=== PATIENT | male | born 1975 | race Caucasian/White ===

== ENCOUNTER 2017-07-02 12:30 | Emergency (ER) | payer OTHER ==
[~2017-07-02] VITALS: Ht 188 cm; Wt 70.3 kg
== END 2017-07-02 18:51 | disposition home or self-care (01) ==
LOC: ER 12:30
DX: M25.512 Pain in left shoulder (principal); M75.92 Shoulder lesion, unspecified, left shoulder

== ENCOUNTER → 2024-01-13 | Emergency (ER) | payer OTHER ==
[~2024-01-13] VITALS: Ht 188 cm; Wt 70.3 kg
[~2024-01-13] MED LIST: KETOROLAC TROMETHAMINE 60 MG VIAL IM ONE; KETOROLAC TROMETHAMINE 60 MG VIAL IM STA
== END | disposition home or self-care (01) ==
LOC: ER 09:57
DX: S43.401A Unspecified sprain of right shoulder joint, initial encounter (principal); M75.51 Bursitis of right shoulder

== ENCOUNTER 2024-12-09 09:53 | Emergency (ER) | payer OTHER ==
[~2024-12-09] VITALS: Ht 188 cm; Wt 77.1 kg
[2024-12-09] MEDS ORDERED: KETOROLAC TROMETHAMINE 60 MG VIAL IM ONE (10:30)
[2024-12-09] MEDS ORDERED: NORFLEX100MG PO (11:40)
== END 2024-12-09 12:07 | disposition home or self-care (01) ==
LOC: ER 09:53
DX: M62.838 Other muscle spasm (principal)